=== PATIENT | male | born 1960 | race Hispanic/Latino ===

== ENCOUNTER → 2022-10-30 | Outpatient (CLI) | payer OTHER, MEDICARE | END | disposition home or self-care (01) | LOC: RAH 11:38 | PROVIDERS: ATTEND Internal Medicine Critical Care Medicine | DX: J44.9 Chronic obstructive pulmonary disease, unspecified (principal) | CPT/HCPCS: 71250 ==

== ENCOUNTER → 2024-06-08 | Outpatient (CLI) | payer OTHER, MEDICARE ==
--- NOTE | 2024-06-08 14:15 | HMCIMG ---
COLON BARIUM W/WO KUB REASON: ENCOUNTER FOR SCREENING FOR MALIGNANT NEOPLASM OF COLON COMPARISON: None TECHNIQUE: Air contrast barium enema was attempted. There is a markedly redundant descending and sigmoid colon. There was rapid filling to the level of the splenic flexure. Multiple attempts were made to advance barium beyond the splenic flexure, without success. Fluoroscopy time was 3.1 minutes. FINDINGS: There is an air luminal gram of the ascending and transverse colon showing no obstruction. Overhead views show normal appearance of the descending and rectosigmoid colon. Postevacuation of view does show barium in the transverse and descending colon, including the appendix, without evidence of mass or obstruction. Impression: 1. Normal air contrast barium enema but limited as described above.
== END | disposition home or self-care (01) ==
LOC: RAH 08:30
PROVIDERS: ATTEND Internal Medicine
DX: Z12.11 Encounter for screening for malignant neoplasm of colon (principal)
CPT/HCPCS: 74270